=== PATIENT | male | born 1965 | race Caucasian/White ===

== ENCOUNTER 2023-06-25 18:10 | Inpatient (IN) | payer SELFPAY ==
[2023-06-25] MEDS ORDERED: Nitroglycerin 50 MG/250 ML BOT 250 ML ONE (18:36)
[2023-06-25 18:42] LABS: Troponin I 0.128 ng/mL (< 0.028)
[2023-06-25] MEDS ORDERED: Acetaminophen 325 MG TAB PO PRN (19:08)
[2023-06-25] MEDS ORDERED: Guaifenesin DM 100-10/5 ML UDCUP PO PRN (19:08)
[2023-06-25] MEDS ORDERED: Calcium Carbonate 500 MG ChewTAB PO PRN (19:08)
[2023-06-25] MEDS ORDERED: Dextrose 50% Abboject 50 ML SYRINGE SLOW IVP PRN (19:08)
[2023-06-25] MEDS ORDERED: Dextrose 5% in Water 1,000 ML IV PRN (19:08)
[2023-06-25] MEDS ORDERED: Glucagon 1 MG/ML KIT IM PRN (19:08)
[2023-06-25] MEDS ORDERED: Senokot S 8.6-50 MG TAB PO PRN (19:08)
[2023-06-25] MEDS ORDERED: Ondansetron PF 4 MG/2 ML Vial IVP PRN (19:08)
[2023-06-25] MEDS ORDERED: Ipratropium/Albuterol 3 ML NEB NEB PRN (19:12)
[2023-06-25] MEDS ORDERED: Nitroglycerin 50 MG/250 ML BOT 250 ML IVPB SCH (19:15)
[2023-06-25 21:13] VITALS: BMI 32.1
[2023-06-25] MEDS ORDERED: Lisinopril 10 MG TAB PO SCH (22:00)
[2023-06-25] MEDS ORDERED: Carvedilol 6.25 MG TAB PO SCH (22:00)
[2023-06-25] MEDS ORDERED: Atorvastatin Calcium 20 MG TAB PO SCH (22:00)
[2023-06-26 03:20] LABS: BUN (Urea Nitrogen) 10 mg/dL (8.4-25.7); Calc. Creatinine Clearance 151 mL/min (70-130); Calcium 7.9 mg/dL (7.8-10.44); Cardiac Risk 5.6 (Less than 4.5); Cholesterol 146 mg/dl (< 200 Desired); Estimated GFR 103; Glucose 160 mg/dL (70-105); HDL Cholesterol 26 mg/dL (>60 Neg Risk); LDL Cholesterol, Calculated 105 mg/dL; Triglycerides 74 mg/dL (Less than 150)
[2023-06-26 03:36] LABS: #Eosinphils 0.1 10x3/uL (0.0-0.5); #Monocytes 0.9 10x3/uL (0.0-1.1); #Neutrophils 4.7 10x3/uL (1.5-8.4); %Basophils 0.5 % (0.0-2.0); %Eosinophils 1.9 % (0.0-6.0); %Monocytes 14.2 % (0.0-10.0); %Neutrophils 72.2 % (40.0-75.0); Hematocrit 48.6 % (38.8-50.0); Hemoglobin 14.5 g/dL (13.5-17.5); Mean Corpuscular HGB CONC 29.8 g/dL (32.0-36.0); Mean Corpuscular Hemoglobin 27.5 pg (27.0-33.0); Mean Corpuscular Volume 92.2 fl (81.2-95.1); Mean Platelet Volume 9.6 fl (7.4-10.4); Platelet Count 291 10x3/uL (150-450); RBC Distribution Width 12.9 % (11.5-14.5); Red Blood Cell (RBC) Count 5.27 10x6/uL (4.32-5.72); White Blood Cell (WBC) Count 6.5 10x3/uL (3.5-10.5)
[2023-06-26 03:40] LABS: Anion Gap 14 mmol/L (10-20); Carbon Dioxide 36 mmol/L (22-29); Chloride 96 mmol/L (98-107); Potassium 4.3 mmol/L (3.5-5.1); Sodium 142 mmol/L (136-145)
[2023-06-26] MEDS: Furosemide 40 MG/4 ML VIAL SLOW IVP SCH ×2 (05:30→13:27)
[2023-06-26] MEDS: Empagliflozin 10 MG TAB PO SCH (08:44)
[2023-06-26] MEDS: Carvedilol 6.25 MG TAB PO SCH ×2 (08:44→17:17)
[2023-06-26] MEDS: Aspirin 81 mg Enteric Coated Tablet PO SCH (08:44)
[2023-06-26] MEDS: Lisinopril 20 MG TAB PO SCH (08:44)
[2023-06-26] MEDS ORDERED: Hydrochlorothiazide 25 MG TAB PO SCH (09:00)
[2023-06-26 11:08] LABS: Magnesium 1.8 mg/dL (1.6-2.6)
[2023-06-26 11:13] LABS: Troponin I 0.078 ng/mL (< 0.028)
[2023-06-26] MEDS: HumaLOG 300 UNITS/3 ML VIAL SC PRN (11:41)
[2023-06-26] MEDS ORDERED: hydrALAZINE 20 MG/ML VIAL SLOW IVP PRN (11:45)
[2023-06-26] MEDS ORDERED: Magnesium 2 GM/50 ML(in water) 2 GM in Premix Bag 1 BAG IVPB SCH (12:00)
[2023-06-26] MEDS: Atorvastatin Calcium 20 MG TAB PO SCH (22:56)
[2023-06-26] MEDS: Docusate 100 MG CAP PO SCH (22:56)
[2023-06-27 04:21] LABS: ALT (SGPT) 9 U/L (8-55); AST (SGOT) 18 U/L (5-34); Albumin 3.4 g/dL (3.5-5.0); Alkaline Phosphatase 66 U/L (40-110); BUN (Urea Nitrogen) 15 mg/dL (8.4-25.7); Bilirubin, Total 0.5 mg/dL (0.2-1.2); Calc. Creatinine Clearance 151 mL/min (70-130); Calcium 8.2 mg/dL (7.8-10.44); Estimated GFR 103; Globulin 2.9 g/dL (2.4-3.5); Glucose 123 mg/dL (70-105); Magnesium 2.2 mg/dL (1.6-2.6); Protein, Total 6.3 g/dL (6.0-8.3)
[2023-06-27 04:29] LABS: #Monocytes 0.7 10x3/uL (0.0-1.1); #Neutrophils 5.6 10x3/uL (1.5-8.4); %Basophils 0.3 % (0.0-2.0); %Eosinophils 0.3 % (0.0-6.0); %Lymphocytes 9.2 % (18.0-47.0); %Monocytes 10.4 % (0.0-10.0); %Neutrophils 79.5 % (40.0-75.0); Hematocrit 49.5 % (38.8-50.0); Hemoglobin 14.3 g/dL (13.5-17.5); Mean Corpuscular HGB CONC 28.9 g/dL (32.0-36.0); Mean Corpuscular Hemoglobin 27.3 pg (27.0-33.0); Mean Corpuscular Volume 94.6 fl (81.2-95.1); Mean Platelet Volume 9.4 fl (7.4-10.4); Platelet Count 322 10x3/uL (150-450); RBC Distribution Width 12.9 % (11.5-14.5); Red Blood Cell (RBC) Count 5.23 10x6/uL (4.32-5.72)
[2023-06-27 04:33] LABS: Anion Gap 15 mmol/L (10-20); Carbon Dioxide 39 mmol/L (22-29); Chloride 90 mmol/L (98-107); Sodium 140 mmol/L (136-145)
[2023-06-27] MEDS: Furosemide 40 MG/4 ML VIAL SLOW IVP SCH ×2 (06:36→15:00)
[2023-06-27] MEDS: Aspirin 81 mg Enteric Coated Tablet PO SCH (09:03)
[2023-06-27] MEDS: Docusate 100 MG CAP PO SCH ×2 (09:03→21:39)
[2023-06-27] MEDS: Lisinopril 20 MG TAB PO SCH (09:03)
[2023-06-27] MEDS: Carvedilol 6.25 MG TAB PO SCH (09:03)
[2023-06-27] MEDS: Empagliflozin 10 MG TAB PO SCH (09:51)
[2023-06-27] MEDS: Carvedilol 12.5 MG TAB PO SCH (16:03)
[2023-06-27] MEDS: Atorvastatin Calcium 20 MG TAB PO SCH (21:39)
[2023-06-27] MEDS: HumaLOG 300 UNITS/3 ML VIAL SC PRN (23:32)
[2023-06-28 04:43] LABS: BUN (Urea Nitrogen) 20 mg/dL (8.4-25.7); Calc. Creatinine Clearance 134 mL/min (70-130); Calcium 8.3 mg/dL (7.8-10.44); Estimated GFR 99; Glucose 122 mg/dL (70-105)
[2023-06-28 04:51] LABS: Anion Gap 18 mmol/L (10-20); Carbon Dioxide 41 mmol/L (22-29); Chloride 86 mmol/L (98-107); Potassium 3.8 mmol/L (3.5-5.1); Sodium 141 mmol/L (136-145)
[2023-06-28] MEDS: Furosemide 40 MG/4 ML VIAL SLOW IVP SCH (05:48)
[2023-06-28] MEDS: Empagliflozin 10 MG TAB PO SCH (08:45)
[2023-06-28] MEDS: Lisinopril 20 MG TAB PO SCH (08:45)
[2023-06-28] MEDS: Docusate 100 MG CAP PO SCH ×2 (08:45→21:50)
[2023-06-28] MEDS: Aspirin 81 mg Enteric Coated Tablet PO SCH (08:45)
[2023-06-28] MEDS: Carvedilol 12.5 MG TAB PO SCH ×2 (08:45→17:07)
[2023-06-28] MEDS ORDERED: Spironolactone 25 MG TAB PO SCH (10:15)
[2023-06-28] MEDS: Furosemide 40 MG TAB PO SCH (13:25)
[2023-06-28] MEDS: HumaLOG 300 UNITS/3 ML VIAL SC PRN (17:00)
[2023-06-28] MEDS: Atorvastatin Calcium 20 MG TAB PO SCH (21:50)
[2023-06-29] MEDS ORDERED: Spironolactone 25 MG TAB PO SCH (08:00)
[2023-06-29] MEDS: Lisinopril 20 MG TAB PO SCH (08:10)
[2023-06-29] MEDS: Docusate 100 MG CAP PO SCH (08:10)
[2023-06-29] MEDS: Carvedilol 12.5 MG TAB PO SCH (08:10)
[2023-06-29] MEDS: Furosemide 40 MG TAB PO SCH (08:10)
[2023-06-29] MEDS: Empagliflozin 10 MG TAB PO SCH (08:10)
[2023-06-29] MEDS: Aspirin 81 mg Enteric Coated Tablet PO SCH (08:10)
[2023-06-29 08:49] VITALS: BP 172/78; TEMP 97.7
== END 2023-06-29 11:06 | disposition left against medical advice (07) | DRG 280 ==
LOC: CSHERS 18:10 → CSHIMCU 20:06 → CSHTELE 06-26 16:11
PROVIDERS: ADMIT Student in an Organized Health Care Education/Training Program; ATTEND Internal Medicine
DX: I11.0 Hypertensive heart disease with heart failure (principal); J96.01 Acute respiratory failure with hypoxia; I21.A1 Myocardial infarction type 2; I16.1 Hypertensive emergency; I16.9 Hypertensive crisis, unspecified; Z68.1 Body mass index [BMI] 19.9 or less, adult; E78.5 Hyperlipidemia, unspecified; E11.9 Type 2 diabetes mellitus without complications; F17.210 Nicotine dependence, cigarettes, uncomplicated; I50.9 Heart failure, unspecified; E66.9 Obesity, unspecified; E78.00 Pure hypercholesterolemia, unspecified; E83.42 Hypomagnesemia; G47.33 Obstructive sleep apnea (adult) (pediatric); Z91.148 Patient's other noncompliance with medication regimen for other reason; Z98.890 Other specified postprocedural states; Z89.511 Acquired absence of right leg below knee
CPT/HCPCS: 36415; 36416; 80048; 80053; 80061; 83036; 83735; 83880; 84443; 84484; 85025; 93005; 93306; 94640; 94760; 94762; 96374; 97139; J1650; J1815; J1940; J3475; J7620

== ENCOUNTER 2023-07-04 13:08 | Inpatient (IN) | payer SELFPAY ==
[2023-07-04 14:09] LABS: Actual Bicarbonate (HCO3v) 39.9 mEq/L (22-28); Base Excess 10.8 mEq/L (-2 - +2); Calcium, Ionized (venous) 1.04 mmol/L (1.16-1.32); Chloride (VBG) 91 mmol/L (98-106); Hematocrit-VBG 46 % (42.0-52.0); Hemoglobin (Hb) 15.6 g/dL (13.1-17.2); Potassium (VBG) 3.91 mmol/L (3.70-5.30); Puncture Site Other Site; Sodium 135.5 mmol/L (133-146); pH (venous) 7.356 (7.32-7.43)
[2023-07-04 14:18] LABS: #Basophils 0.1 10x3/uL (0.0-0.2); #Eosinphils 0.1 10x3/uL (0.0-0.5); #Monocytes 1.2 10x3/uL (0.0-1.1); #Neutrophils 6.4 10x3/uL (1.5-8.4); %Basophils 0.6 % (0.0-2.0); %Lymphocytes 11.3 % (18.0-47.0); %Monocytes 13.7 % (0.0-10.0); %Neutrophils 73.1 % (40.0-75.0); Hematocrit 47.8 % (38.8-50.0); Hemoglobin 14.7 g/dL (13.5-17.5); Mean Corpuscular HGB CONC 30.8 g/dL (32.0-36.0); Mean Corpuscular Hemoglobin 28.1 pg (27.0-33.0); Mean Corpuscular Volume 91.4 fl (81.2-95.1); Mean Platelet Volume 10.3 fl (7.4-10.4); Platelet Count 318 10x3/uL (150-450); RBC Distribution Width 13.4 % (11.5-14.5); Red Blood Cell (RBC) Count 5.23 10x6/uL (4.32-5.72); White Blood Cell (WBC) Count 8.8 10x3/uL (3.5-10.5)
[2023-07-04] MEDS ORDERED: Nitroglycerin 2% Ointment 1 INCH/1 GM Packet ONE (14:22)
[2023-07-04] MEDS ORDERED: Furosemide 40 MG/4 ML VIAL ONE (14:22)
[2023-07-04] MEDS ORDERED: Nitroglycerin 0.4 MG TAB (25 Tab Bottle) ONE (14:23)
[2023-07-04 14:26] LABS: ALT (SGPT) 8 U/L (8-55); AST (SGOT) 16 U/L (5-34); Albumin 3.3 g/dL (3.5-5.0); Alkaline Phosphatase 59 U/L (40-110); Anion Gap 15 mmol/L (10-20); BUN (Urea Nitrogen) 18 mg/dL (8.4-25.7); Bilirubin, Total 0.5 mg/dL (0.2-1.2); Calc. Creatinine Clearance 0 mL/min (70-130); Calcium 8.1 mg/dL (7.8-10.44); Carbon Dioxide 37 mmol/L (22-29); Chloride 90 mmol/L (98-107); Estimated GFR 102; Glucose 315 mg/dL (70-105); Protein, Total 6.3 g/dL (6.0-8.3); Sodium 138 mmol/L (136-145)
[2023-07-04 14:50] LABS: SARS-CoV-2 NAA Rapid Test Not Detected (NotDetected)
[2023-07-04 15:51] LABS: Troponin I 0.507 ng/mL (< 0.028)
[2023-07-04] MEDS ORDERED: Dextrose 50% Abboject 50 ML SYRINGE SLOW IVP PRN (15:59)
[2023-07-04] MEDS ORDERED: Glucagon 1 MG/ML KIT IM PRN (15:59)
[2023-07-04] MEDS ORDERED: Dextrose 5% in Water 1,000 ML IV PRN (15:59)
[2023-07-04] MEDS ORDERED: Ipratropium/Albuterol 3 ML NEB NEB PRN (16:01)
[2023-07-04] MEDS ORDERED: Loperamide HCl 2 MG CAP PO PRN ×2 (16:04)
[2023-07-04] MEDS ORDERED: Ondansetron PF 4 MG/2 ML Vial IVP PRN (16:04)
[2023-07-04] MEDS ORDERED: Bisacodyl 5 MG TAB PO PRN (16:04)
[2023-07-04] MEDS ORDERED: HYDROcodone/Acetaminophen 5/325 mg Tablet PO PRN (16:04)
[2023-07-04] MEDS ORDERED: Acetaminophen 650 MG Suppository PR PRN (16:04)
[2023-07-04] MEDS ORDERED: Acetaminophen 325 MG TAB PO PRN (16:04)
[2023-07-04] MEDS ORDERED: Ondansetron ODT 4 MG TAB PO PRN (16:04)
[2023-07-04] MEDS ORDERED: Senokot S 8.6-50 MG TAB PO PRN (16:04)
[2023-07-04 16:42] LABS: Troponin I 0.476 ng/mL (< 0.028)
[2023-07-04] MEDS ORDERED: Aspirin 325 MG TAB PO SCH (18:00)
[2023-07-04] MEDS ORDERED: Carvedilol 12.5 MG TAB PO SCH (18:00)
[2023-07-04] MEDS ORDERED: Aspirin 325 mg Enteric Coated Tablet ONE (18:12)
[2023-07-04] MEDS ORDERED: Insulin Regular 300 UNITS/3 ML VIAL ONE (18:12)
[2023-07-04] MEDS ORDERED: cefTRIAXone (ROCEPHIN) 2 GM VIAL ONE (18:12)
[2023-07-04] MEDS: cefTRIAXone\\ROCEPHIN 2 GM in Sodium Chloride 0.9% 100 ML IVPB SCH (18:22)
[2023-07-04] MEDS: HumaLOG 300 UNITS/3 ML VIAL SC PRN ×2 (18:23→21:57)
[2023-07-04] MEDS: Nicotine 14 MG PATCH TD SCH (18:23)
[2023-07-04 20:01] LABS: Troponin I 0.548 ng/mL (< 0.028)
[2023-07-04] MEDS: Famotidine 20 MG TAB PO SCH (20:20)
[2023-07-04] MEDS ORDERED: Famotidine/PF 20 mg/2ml Vial SLOW IVP PRN (21:00)
[2023-07-04] MEDS ORDERED: Atorvastatin Calcium 20 MG TAB PO SCH (21:00)
[2023-07-04] MEDS ORDERED: Furosemide 40 MG/4 ML VIAL SLOW IVP SCH (21:00)
[2023-07-04] MEDS: Nitroglycerin 2% Ointment 1 INCH/1 GM Packet TOP SCH (21:58)
[2023-07-05] MEDS: HumaLOG 300 UNITS/3 ML VIAL SC PRN ×5 (02:07→23:46)
[2023-07-05 05:28] LABS: Actual Bicarbonate (HCO3v) 49.3 mEq/L (22-28); Base Excess 15.7 mEq/L (-2 - +2); Calcium, Ionized (venous) 1.04 mmol/L (1.16-1.32); Chloride (VBG) 92 mmol/L (98-106); Hematocrit-VBG 43 % (42.0-52.0); Hemoglobin (Hb) 14.7 g/dL (13.1-17.2); Potassium (VBG) 4.41 mmol/L (3.70-5.30); Puncture Site Other Site; Sodium 140.1 mmol/L (133-146); pH (venous) 7.237 (7.32-7.43)
[2023-07-05 05:44] LABS: #Basophils 0.1 10x3/uL (0.0-0.2); #Eosinphils 0.2 10x3/uL (0.0-0.5); #Neutrophils 4.8 10x3/uL (1.5-8.4); %Basophils 0.7 % (0.0-2.0); %Eosinophils 2.4 % (0.0-6.0); %Lymphocytes 14.8 % (18.0-47.0); %Monocytes 14.3 % (0.0-10.0); %Neutrophils 67.5 % (40.0-75.0); Hematocrit 47.2 % (38.8-50.0); Hemoglobin 13.6 g/dL (13.5-17.5); Mean Corpuscular HGB CONC 28.8 g/dL (32.0-36.0); Mean Corpuscular Hemoglobin 27.4 pg (27.0-33.0); Mean Corpuscular Volume 95.2 fl (81.2-95.1); Mean Platelet Volume 10.3 fl (7.4-10.4); Platelet Count 294 10x3/uL (150-450); RBC Distribution Width 13.7 % (11.5-14.5); Red Blood Cell (RBC) Count 4.96 10x6/uL (4.32-5.72); White Blood Cell (WBC) Count 7.2 10x3/uL (3.5-10.5)
[2023-07-05] MEDS ORDERED: Ipratropium/Albuterol 3 ML NEB NEB SCH (05:45)
[2023-07-05] MEDS ORDERED: methylPREDNISolone Sod Succ/PF 125 MG/2 ML VIAL IVP SCH (05:45)
[2023-07-05 06:06] LABS: BUN (Urea Nitrogen) 23 mg/dL (8.4-25.7); Calc. Creatinine Clearance 138 mL/min (70-130); Calcium 7.8 mg/dL (7.8-10.44); Estimated GFR 102; Glucose 233 mg/dL (70-105)
[2023-07-05 06:15] LABS: Anion Gap 21 mmol/L (10-20); Carbon Dioxide 33 mmol/L (22-29); Chloride 91 mmol/L (98-107); Potassium 4.4 mmol/L (3.5-5.1); Sodium 141 mmol/L (136-145)
[2023-07-05] MEDS: Furosemide 40 MG/4 ML VIAL SLOW IVP SCH ×2 (06:18→13:08)
[2023-07-05] MEDS: Nitroglycerin 2% Ointment 1 INCH/1 GM Packet TOP SCH ×3 (06:18→22:34)
[2023-07-05 07:42] LABS: Actual Bicarbonate (HCO3v) 46.4 mEq/L (22-28); Base Excess 11.2 mEq/L (-2 - +2); Calcium, Ionized (venous) 1.08 mmol/L (1.16-1.32); Chloride (VBG) 90 mmol/L (98-106); Hematocrit-VBG 46 % (42.0-52.0); Hemoglobin (Hb) 15.5 g/dL (13.1-17.2); Potassium (VBG) 3.96 mmol/L (3.70-5.30); Puncture Site Other Site; RapidComm Collect By lab tech; Sodium 141.1 mmol/L (133-146); pH (venous) 7.156 (7.32-7.43)
[2023-07-05] MEDS ORDERED: Carvedilol 12.5 MG TAB PO SCH (08:00)
[2023-07-05] MEDS: Ipratropium/Albuterol 3 ML NEB NEB SCH ×4 (09:30→22:24)
[2023-07-05] MEDS: Aspirin 81 mg Enteric Coated Tablet PO SCH (09:43)
[2023-07-05] MEDS: Famotidine 20 MG TAB PO SCH (09:43)
[2023-07-05 09:56] LABS: Actual Bicarbonate (HCO3a) 51.3 mEq/L (22-28); Base Excess (BEa) 17.5 mEq/L (-2.0 to +3.0); Carboxyhemoglobin (COHb) 1.5 gm% (0.0-3.0); Hematocrit-ABG 43 % (42.0-52.0); Hemoglobin (Hb) 14.6 g/dL (14.0-18.0); O2 Tension (PaO2), arterial 80.3 mmHg (80.0-100.0); Potassium - ABG Lab 3.75 mmol/L (3.70-5.30); Puncture Site RRA; pH, Arterial 7.245 (7.35-7.45)
[2023-07-05 10:02] LABS: Amphetamine Not Detected (NotDetected); Barbiturates Screen Not Detected (NotDetected); Benzodiazepine Screen Not Detected (NotDetected); Cocaine Metabolite Screen Not Detected (NotDetected); Methadone Not Detected (NotDetected); Methamphetamine Not Detected (NotDetected); Opiate Screen Not Detected (NotDetected); Oxycodone Screen Not Detected (NotDetected); Phencyclidine (PCP) Not Detected (NotDetected); THC/Cannabinoid Screen Not Detected (NotDetected); Tricyclic Screen Not Detected (NotDetected)
[2023-07-05] MEDS ORDERED: Labetalol HCl 100 MG/20 ML VIAL SLOW IVP PRN (10:06)
[2023-07-05] MEDS: Aspirin 325 MG TAB PO SCH ×2 (10:11→10:19)
[2023-07-05] MEDS ORDERED: Aspirin 300 MG Suppository PR SCH (10:30)
[2023-07-05 10:35] LABS: Acetaminophen Less than 10 mcg/mL (10.0-30.0); Alcohol Less than 10.0 mg/dL (Less than 10); Salicylate Less than 8.0 mg/dL (15.0-30.0)
[2023-07-05 11:31] LABS: INR-International Normal Ratio 1.1; PTT 28.5 sec (22.0-33.0); Prothrombin Time 11.9 sec (9.5-12.1)
[2023-07-05 11:54] LABS: Free T4 (Free Thyroxine) 0.95 ng/dL (0.70-1.48); Thyroid Stimulating Hormone 0.6168 uIU/mL (0.35-4.94)
[2023-07-05] MEDS: methylPREDNISolone Sod Succ 40 MG VIAL IVP SCH ×3 (13:08→23:34)
[2023-07-05] MEDS: Mometasone/Formoterol 200/5 60 PUFF INH SCH ×2 (13:48→19:30)
[2023-07-05] MEDS ORDERED: Iopamidol 370 76% 100 ML VIAL ONE ×2 (13:51→13:52)
[2023-07-05] MEDS: Nicotine 14 MG PATCH TD SCH (17:22)
[2023-07-05] MEDS: cefTRIAXone\\ROCEPHIN 2 GM in Sodium Chloride 0.9% 100 ML IVPB SCH (18:08)
[2023-07-05] MEDS: Atorvastatin Calcium 40 MG TAB PO SCH (20:20)
[2023-07-06 03:15] LABS: #Monocytes 0.3 10x3/uL (0.0-1.1); #Neutrophils 6.3 10x3/uL (1.5-8.4); %Lymphocytes 4.2 % (18.0-47.0); %Monocytes 4.5 % (0.0-10.0); %Neutrophils 91.2 % (40.0-75.0); Hematocrit 44.1 % (38.8-50.0); Hemoglobin 13.3 g/dL (13.5-17.5); Mean Corpuscular HGB CONC 30.2 g/dL (32.0-36.0); Mean Corpuscular Hemoglobin 27.7 pg (27.0-33.0); Mean Corpuscular Volume 91.9 fl (81.2-95.1); Mean Platelet Volume 10.1 fl (7.4-10.4); Platelet Count 280 10x3/uL (150-450); RBC Distribution Width 13.1 % (11.5-14.5)
[2023-07-06] MEDS: Ipratropium/Albuterol 3 ML NEB NEB SCH ×6 (03:15→22:40)
[2023-07-06 03:58] LABS: BUN (Urea Nitrogen) 30 mg/dL (8.4-25.7); Calc. Creatinine Clearance 135 mL/min (70-130); Calcium 7.9 mg/dL (7.8-10.44); Cardiac Risk 5.9 (Less than 4.5); Cholesterol 135 mg/dl (< 200 Desired); Estimated GFR 101; Glucose 376 mg/dL (70-105); HDL Cholesterol 23 mg/dL (>60 Neg Risk); LDL Cholesterol, Calculated 93 mg/dL; Triglycerides 97 mg/dL (Less than 150)
[2023-07-06] MEDS: HumaLOG 300 UNITS/3 ML VIAL SC PRN ×5 (04:03→19:56)
[2023-07-06 04:06] LABS: Anion Gap 23 mmol/L (10-20); Carbon Dioxide 33 mmol/L (22-29); Chloride 90 mmol/L (98-107); Sodium 142 mmol/L (136-145)
[2023-07-06] MEDS: methylPREDNISolone Sod Succ 40 MG VIAL IVP SCH ×2 (05:57→12:09)
[2023-07-06] MEDS: Nitroglycerin 2% Ointment 1 INCH/1 GM Packet TOP SCH ×3 (05:57→21:00)
[2023-07-06] MEDS: Furosemide 40 MG/4 ML VIAL SLOW IVP SCH ×2 (05:57→13:38)
[2023-07-06] MEDS: Mometasone/Formoterol 200/5 60 PUFF INH SCH ×2 (07:00→18:40)
[2023-07-06] MEDS: Aspirin 81 mg Enteric Coated Tablet PO SCH (07:43)
[2023-07-06] MEDS: Aspirin 300 MG Suppository PR SCH (09:25)
[2023-07-06] MEDS: hydrALAZINE 20 MG/ML VIAL SLOW IVP PRN (10:50)
[2023-07-06] MEDS ORDERED: Lisinopril 20 MG TAB PO SCH (13:00)
[2023-07-06] MEDS: Carvedilol 6.25 MG TAB PO SCH (16:13)
[2023-07-06] MEDS: Nicotine 14 MG PATCH TD SCH (18:08)
[2023-07-06] MEDS: cefTRIAXone\\ROCEPHIN 2 GM in Sodium Chloride 0.9% 100 ML IVPB SCH (18:08)
[2023-07-06 19:52] LABS: Hemoglobin A1c 8.3 % (4.0-6.0)
[2023-07-06] MEDS: Atorvastatin Calcium 40 MG TAB PO SCH (20:10)
[2023-07-07] MEDS: Ipratropium/Albuterol 3 ML NEB NEB SCH ×5 (02:30→20:40)
[2023-07-07 04:07] LABS: BUN (Urea Nitrogen) 25 mg/dL (8.4-25.7); Calc. Creatinine Clearance 152 mL/min (70-130); Calcium 8.3 mg/dL (7.8-10.44); Estimated GFR 105; Glucose 186 mg/dL (70-105)
[2023-07-07 04:14] VITALS: BMI 32.3
[2023-07-07 04:14] LABS: Anion Gap 18 mmol/L (10-20); Carbon Dioxide 38 mmol/L (22-29); Chloride 89 mmol/L (98-107); Potassium 3.5 mmol/L (3.5-5.1); Sodium 141 mmol/L (136-145)
[2023-07-07 04:27] LABS: #Monocytes 0.9 10x3/uL (0.0-1.1); #Neutrophils 7.6 10x3/uL (1.5-8.4); %Eosinophils 0.1 % (0.0-6.0); %Lymphocytes 8.6 % (18.0-47.0); %Neutrophils 81.1 % (40.0-75.0); Hematocrit 42.3 % (38.8-50.0); Hemoglobin 12.9 g/dL (13.5-17.5); Mean Corpuscular HGB CONC 30.5 g/dL (32.0-36.0); Mean Corpuscular Hemoglobin 27.6 pg (27.0-33.0); Mean Corpuscular Volume 90.4 fl (81.2-95.1); Mean Platelet Volume 10.1 fl (7.4-10.4); Platelet Count 263 10x3/uL (150-450); RBC Distribution Width 13.4 % (11.5-14.5); Red Blood Cell (RBC) Count 4.68 10x6/uL (4.32-5.72); White Blood Cell (WBC) Count 9.3 10x3/uL (3.5-10.5)
[2023-07-07] MEDS: Furosemide 40 MG/4 ML VIAL SLOW IVP SCH ×2 (06:16→14:17)
[2023-07-07] MEDS: Nitroglycerin 2% Ointment 1 INCH/1 GM Packet TOP SCH (06:16)
[2023-07-07] MEDS: Carvedilol 6.25 MG TAB PO SCH (08:18)
[2023-07-07] MEDS: HumaLOG 300 UNITS/3 ML VIAL SC PRN ×5 (08:18→23:09)
[2023-07-07] MEDS: Lisinopril 20 MG TAB PO SCH (08:18)
[2023-07-07] MEDS: Aspirin 81 mg Enteric Coated Tablet PO SCH (08:18)
[2023-07-07] MEDS: predniSONE 20 MG TAB PO SCH (08:18)
[2023-07-07] MEDS: Aspirin 300 MG Suppository PR SCH (08:19)
[2023-07-07] MEDS: Mometasone/Formoterol 200/5 60 PUFF INH SCH ×2 (08:44→21:09)
[2023-07-07] MEDS ORDERED: Carvedilol 12.5 MG TAB PO SCH (09:30)
[2023-07-07] MEDS: Carvedilol 25 MG TAB PO SCH (16:19)
[2023-07-07] MEDS: Nicotine 14 MG PATCH TD SCH (17:19)
[2023-07-07] MEDS: cefTRIAXone\\ROCEPHIN 2 GM in Sodium Chloride 0.9% 100 ML IVPB SCH (17:19)
[2023-07-07] MEDS: Atorvastatin Calcium 40 MG TAB PO SCH (20:51)
[2023-07-07 22:08] LABS: Actual Bicarbonate (HCO3v) 39.5 mEq/L (22-28); Base Excess 12.6 mEq/L (-2 - +2); Calcium, Ionized (venous) 1.01 mmol/L (1.16-1.32); Chloride (VBG) 87 mmol/L (98-106); Hematocrit-VBG 43 % (42.0-52.0); Hemoglobin (Hb) 14.6 g/dL (13.1-17.2); Potassium (VBG) 3.55 mmol/L (3.70-5.30); Puncture Site Other Site; Sodium 132.4 mmol/L (133-146)
[2023-07-08] MEDS: Ipratropium/Albuterol 3 ML NEB NEB SCH ×4 (00:35→19:14)
[2023-07-08] MEDS: hydrALAZINE 20 MG/ML VIAL SLOW IVP PRN ×2 (04:11→12:06)
[2023-07-08 05:16] LABS: #Eosinphils 0.1 10x3/uL (0.0-0.5); #Monocytes 1.4 10x3/uL (0.0-1.1); #Neutrophils 6.3 10x3/uL (1.5-8.4); %Basophils 0.1 % (0.0-2.0); %Eosinophils 0.6 % (0.0-6.0); %Lymphocytes 13.7 % (18.0-47.0); %Monocytes 15.2 % (0.0-10.0); Hematocrit 47.5 % (38.8-50.0); Hemoglobin 14.6 g/dL (13.5-17.5); Mean Corpuscular HGB CONC 30.7 g/dL (32.0-36.0); Mean Corpuscular Hemoglobin 27.1 pg (27.0-33.0); Mean Corpuscular Volume 88.1 fl (81.2-95.1); Platelet Count 296 10x3/uL (150-450); RBC Distribution Width 13.2 % (11.5-14.5); Red Blood Cell (RBC) Count 5.39 10x6/uL (4.32-5.72)
[2023-07-08 05:20] LABS: BUN (Urea Nitrogen) 23 mg/dL (8.4-25.7); Calc. Creatinine Clearance 155 mL/min (70-130); Calcium 8.3 mg/dL (7.8-10.44); Estimated GFR 104; Glucose 272 mg/dL (70-105)
[2023-07-08 05:27] LABS: Anion Gap 18 mmol/L (10-20); Carbon Dioxide 34 mmol/L (22-29); Chloride 88 mmol/L (98-107); Potassium 3.4 mmol/L (3.5-5.1); Sodium 137 mmol/L (136-145)
[2023-07-08] MEDS: Furosemide 40 MG/4 ML VIAL SLOW IVP SCH ×2 (05:44→15:23)
[2023-07-08] MEDS: HumaLOG 300 UNITS/3 ML VIAL SC PRN ×2 (06:30→12:07)
[2023-07-08] MEDS ORDERED: hydrALAZINE 20 MG/ML VIAL SLOW IVP PRN (09:19)
[2023-07-08] MEDS: predniSONE 20 MG TAB PO SCH (09:20)
[2023-07-08] MEDS: Lisinopril 20 MG TAB PO SCH (09:20)
[2023-07-08] MEDS: Mometasone/Formoterol 200/5 60 PUFF INH SCH ×2 (09:23→19:13)
[2023-07-08] MEDS: Aspirin 300 MG Suppository PR SCH (10:46)
[2023-07-08] MEDS: Aspirin 81 mg Enteric Coated Tablet PO SCH (10:46)
[2023-07-08] MEDS: Lantus 1000 UNITS/10 ML VIAL SC SCH (10:47)
[2023-07-08] MEDS: Empagliflozin 25 MG TAB PO SCH (11:37)
[2023-07-08] MEDS: Carvedilol 25 MG TAB PO SCH ×2 (11:37→17:54)
[2023-07-08] MEDS ORDERED: cloNIDine 0.1 MG TAB PO PRN (11:59)
[2023-07-08] MEDS: hydrALAZINE 25 MG TAB PO SCH ×2 (15:22→21:06)
[2023-07-08] MEDS: cefTRIAXone\\ROCEPHIN 2 GM in Sodium Chloride 0.9% 100 ML IVPB SCH (17:54)
[2023-07-08] MEDS: Nicotine 14 MG PATCH TD SCH (19:11)
[2023-07-08] MEDS: Atorvastatin Calcium 40 MG TAB PO SCH (21:07)
[2023-07-09] MEDS: Ipratropium/Albuterol 3 ML NEB NEB SCH ×4 (01:48→19:40)
[2023-07-09 03:59] LABS: BUN (Urea Nitrogen) 21 mg/dL (8.4-25.7); Calc. Creatinine Clearance 153 mL/min (70-130); Calcium 8.1 mg/dL (7.8-10.44); Estimated GFR 105; Glucose 155 mg/dL (70-105)
[2023-07-09 04:01] LABS: #Eosinphils 0.2 10x3/uL (0.0-0.5); #Monocytes 0.9 10x3/uL (0.0-1.1); #Neutrophils 3.7 10x3/uL (1.5-8.4); %Basophils 0.3 % (0.0-2.0); %Eosinophils 2.5 % (0.0-6.0); %Lymphocytes 20.2 % (18.0-47.0); %Monocytes 14.5 % (0.0-10.0); Hematocrit 49.1 % (38.8-50.0); Hemoglobin 14.9 g/dL (13.5-17.5); Mean Corpuscular HGB CONC 30.3 g/dL (32.0-36.0); Mean Corpuscular Hemoglobin 27.2 pg (27.0-33.0); Mean Corpuscular Volume 89.8 fl (81.2-95.1); Mean Platelet Volume 9.7 fl (7.4-10.4); Platelet Count 249 10x3/uL (150-450); RBC Distribution Width 13.3 % (11.5-14.5); Red Blood Cell (RBC) Count 5.47 10x6/uL (4.32-5.72); White Blood Cell (WBC) Count 5.9 10x3/uL (3.5-10.5)
[2023-07-09 04:07] LABS: Anion Gap 20 mmol/L (10-20); Carbon Dioxide 34 mmol/L (22-29); Chloride 90 mmol/L (98-107); Potassium 3.7 mmol/L (3.5-5.1); Sodium 140 mmol/L (136-145)
[2023-07-09] MEDS: Furosemide 40 MG/4 ML VIAL SLOW IVP SCH ×2 (06:39→14:29)
[2023-07-09] MEDS: Mometasone/Formoterol 200/5 60 PUFF INH SCH ×2 (08:05→19:30)
[2023-07-09] MEDS: hydrALAZINE 25 MG TAB PO SCH ×3 (08:53→22:20)
[2023-07-09] MEDS: Aspirin 81 mg Enteric Coated Tablet PO SCH (08:53)
[2023-07-09] MEDS: Carvedilol 25 MG TAB PO SCH ×2 (08:53→16:30)
[2023-07-09] MEDS: Aspirin 300 MG Suppository PR SCH (08:54)
[2023-07-09] MEDS: Lantus 1000 UNITS/10 ML VIAL SC SCH (08:54)
[2023-07-09] MEDS: predniSONE 20 MG TAB PO SCH (08:54)
[2023-07-09] MEDS: Valsartan 80 MG TAB PO SCH (08:54)
[2023-07-09] MEDS ORDERED: Potassium Chloride 20 MEQ TAB PO SCH (10:00)
[2023-07-09] MEDS: Empagliflozin 25 MG TAB PO SCH (11:48)
[2023-07-09] MEDS: HumaLOG 300 UNITS/3 ML VIAL SC PRN ×2 (11:49→16:30)
[2023-07-09] MEDS: cefTRIAXone\\ROCEPHIN 2 GM in Sodium Chloride 0.9% 100 ML IVPB SCH (19:00)
[2023-07-09] MEDS: Nicotine 14 MG PATCH TD SCH (19:00)
[2023-07-09] MEDS: Atorvastatin Calcium 40 MG TAB PO SCH (22:19)
[2023-07-10] MEDS: Ipratropium/Albuterol 3 ML NEB NEB SCH ×4 (01:25→19:11)
[2023-07-10 04:50] LABS: BUN (Urea Nitrogen) 22 mg/dL (8.4-25.7); Calc. Creatinine Clearance 138 mL/min (70-130); Calcium 8.4 mg/dL (7.8-10.44); Estimated GFR 101; Glucose 184 mg/dL (70-105)
[2023-07-10 04:51] LABS: #Eosinphils 0.1 10x3/uL (0.0-0.5); #Monocytes 1.2 10x3/uL (0.0-1.1); #Neutrophils 6.5 10x3/uL (1.5-8.4); %Basophils 0.1 % (0.0-2.0); %Lymphocytes 14.4 % (18.0-47.0); %Monocytes 13.1 % (0.0-10.0); %Neutrophils 71.2 % (40.0-75.0); Hematocrit 47.1 % (38.8-50.0); Hemoglobin 14.5 g/dL (13.5-17.5); Mean Corpuscular HGB CONC 30.8 g/dL (32.0-36.0); Mean Corpuscular Hemoglobin 27.6 pg (27.0-33.0); Mean Corpuscular Volume 89.5 fl (81.2-95.1); Mean Platelet Volume 9.8 fl (7.4-10.4); Platelet Count 267 10x3/uL (150-450); RBC Distribution Width 13.2 % (11.5-14.5); Red Blood Cell (RBC) Count 5.26 10x6/uL (4.32-5.72); White Blood Cell (WBC) Count 9.1 10x3/uL (3.5-10.5)
[2023-07-10 04:57] LABS: Anion Gap 17 mmol/L (10-20); Carbon Dioxide 36 mmol/L (22-29); Chloride 92 mmol/L (98-107); Potassium 3.6 mmol/L (3.5-5.1); Sodium 141 mmol/L (136-145)
[2023-07-10] MEDS: Furosemide 40 MG/4 ML VIAL SLOW IVP SCH (06:31)
[2023-07-10] MEDS: Mometasone/Formoterol 200/5 60 PUFF INH SCH ×2 (07:45→19:09)
[2023-07-10] MEDS: Carvedilol 25 MG TAB PO SCH ×2 (09:51→19:50)
[2023-07-10] MEDS: predniSONE 20 MG TAB PO SCH (09:51)
[2023-07-10] MEDS: hydrALAZINE 25 MG TAB PO SCH ×3 (09:51→22:02)
[2023-07-10] MEDS: Lantus 1000 UNITS/10 ML VIAL SC SCH (09:52)
[2023-07-10] MEDS: Empagliflozin 25 MG TAB PO SCH (09:53)
[2023-07-10] MEDS: Valsartan 80 MG TAB PO SCH (09:53)
[2023-07-10] MEDS: Aspirin 300 MG Suppository PR SCH (09:54)
[2023-07-10] MEDS: Aspirin 81 mg Enteric Coated Tablet PO SCH (10:02)
[2023-07-10] MEDS ORDERED: Spironolactone 25 MG TAB PO SCH (11:00)
[2023-07-10] MEDS ORDERED: Potassium Chloride 20 MEQ TAB PO SCH (11:00)
[2023-07-10] MEDS: HumaLOG 300 UNITS/3 ML VIAL SC PRN ×2 (12:23→22:02)
[2023-07-10] MEDS: Furosemide 40 MG TAB PO SCH (15:18)
[2023-07-10] MEDS: cefTRIAXone\\ROCEPHIN 2 GM in Sodium Chloride 0.9% 100 ML IVPB SCH (19:50)
[2023-07-10] MEDS: Nicotine 14 MG PATCH TD SCH (19:53)
[2023-07-10] MEDS: Atorvastatin Calcium 40 MG TAB PO SCH (22:02)
[2023-07-11] MEDS: Ipratropium/Albuterol 3 ML NEB NEB SCH ×3 (00:32→14:44)
[2023-07-11 03:55] LABS: #Eosinphils 0.1 10x3/uL (0.0-0.5); #Monocytes 1.1 10x3/uL (0.0-1.1); #Neutrophils 6.9 10x3/uL (1.5-8.4); %Basophils 0.2 % (0.0-2.0); %Eosinophils 0.8 % (0.0-6.0); %Lymphocytes 14.6 % (18.0-47.0); %Monocytes 11.1 % (0.0-10.0); Hematocrit 49.8 % (38.8-50.0); Hemoglobin 15.3 g/dL (13.5-17.5); Mean Corpuscular HGB CONC 30.7 g/dL (32.0-36.0); Mean Corpuscular Hemoglobin 27.3 pg (27.0-33.0); Mean Corpuscular Volume 88.8 fl (81.2-95.1); Mean Platelet Volume 9.8 fl (7.4-10.4); Platelet Count 322 10x3/uL (150-450); RBC Distribution Width 13.5 % (11.5-14.5); Red Blood Cell (RBC) Count 5.61 10x6/uL (4.32-5.72); White Blood Cell (WBC) Count 9.5 10x3/uL (3.5-10.5)
[2023-07-11 04:18] LABS: BUN (Urea Nitrogen) 26 mg/dL (8.4-25.7); Calc. Creatinine Clearance 0 mL/min (70-130); Calcium 8.9 mg/dL (7.8-10.44); Estimated GFR 100; Glucose 118 mg/dL (70-105)
[2023-07-11 04:25] LABS: Anion Gap 18 mmol/L (10-20); Carbon Dioxide 34 mmol/L (22-29); Chloride 93 mmol/L (98-107); Potassium 4.6 mmol/L (3.5-5.1); Sodium 140 mmol/L (136-145)
[2023-07-11] MEDS: Mometasone/Formoterol 200/5 60 PUFF INH SCH (07:35)
[2023-07-11] MEDS ORDERED: Spironolactone 25 MG TAB PO SCH (08:00)
[2023-07-11] MEDS: Carvedilol 25 MG TAB PO SCH (08:46)
[2023-07-11] MEDS: Empagliflozin 25 MG TAB PO SCH (08:46)
[2023-07-11] MEDS: predniSONE 20 MG TAB PO SCH (08:46)
[2023-07-11] MEDS: Furosemide 40 MG TAB PO SCH (08:46)
[2023-07-11] MEDS: Valsartan 80 MG TAB PO SCH (08:46)
[2023-07-11] MEDS: hydrALAZINE 25 MG TAB PO SCH (08:47)
[2023-07-11] MEDS: Aspirin 300 MG Suppository PR SCH (08:47)
[2023-07-11] MEDS: Aspirin 81 mg Enteric Coated Tablet PO SCH (08:47)
[2023-07-11] MEDS: Lantus 1000 UNITS/10 ML VIAL SC SCH (08:48)
[2023-07-11 09:21] VITALS: TEMP 98
[2023-07-11 12:30] VITALS: BP 133/71
== END 2023-07-11 15:38 | disposition home or self-care (01) | DRG 280 ==
LOC: CSHERS 13:08 → CSHERHOLD 15:19 → CSHTELE 20:02 → CSHIMCU 07-05 07:32 → CSHTELE 07-08 00:20
PROVIDERS: ADMIT Student in an Organized Health Care Education/Training Program; ATTEND Internal Medicine
PROC: 4A133R1 Monitoring of Arterial Saturation, Peripheral, Percutaneous Approach (ICD-10-PCS; principal; 2023-07-05)
PROC: 5A09457 Assistance with Respiratory Ventilation, 24-96 Consecutive Hours, Continuous Positive Airway Pressure (ICD-10-PCS; 2023-07-05)
DX: I11.0 Hypertensive heart disease with heart failure (principal); I21.A1 Myocardial infarction type 2; G93.41 Metabolic encephalopathy; I50.43 Acute on chronic combined systolic (congestive) and diastolic (congestive) heart failure; J96.22 Acute and chronic respiratory failure with hypercapnia; J96.21 Acute and chronic respiratory failure with hypoxia; I63.9 Cerebral infarction, unspecified; I16.9 Hypertensive crisis, unspecified; L03.116 Cellulitis of left lower limb; E11.9 Type 2 diabetes mellitus without complications; G47.33 Obstructive sleep apnea (adult) (pediatric); E78.00 Pure hypercholesterolemia, unspecified; Z89.511 Acquired absence of right leg below knee; F17.210 Nicotine dependence, cigarettes, uncomplicated; Z82.49 Family history of ischemic heart disease and other diseases of the circulatory system; Z20.822 Contact with and (suspected) exposure to COVID-19; Z71.6 Tobacco abuse counseling; Z91.148 Patient's other noncompliance with medication regimen for other reason; Z79.4 Long term (current) use of insulin; Z79.899 Other long term (current) drug therapy; E04.1 Nontoxic single thyroid nodule; J44.9 Chronic obstructive pulmonary disease, unspecified; Z79.82 Long term (current) use of aspirin
CPT/HCPCS: 36415; 36416; 36600; 70450; 70496; 70498; 70551; 71045; 71275; 80048; 80053; 80061; 80306; 80307; 82805; 83036; 83605; 83735; 83880; 84439; 84443; 84481; 84484; 85025; 85610; 85730; 93005; 93010; 94640; 94660; 94664; 94760; 94762; 96374; 97139; J0360; J0696; J1650; J1815; J1940; J2920; J2930; J3490; J7512; J7620; Q9967

== ENCOUNTER 2023-11-20 07:44 | Inpatient (IN) | payer SELFPAY ==
[2023-11-20 08:12] LABS: #Monocytes 0.9 10x3/uL (0.0-1.1); #Neutrophils 7.8 10x3/uL (1.5-8.4); %Basophils 0.2 % (0.0-2.0); %Lymphocytes 8.4 % (18.0-47.0); %Monocytes 9.1 % (0.0-10.0); %Neutrophils 81.8 % (40.0-75.0); Hematocrit 50.7 % (38.8-50.0); Mean Corpuscular HGB CONC 29.6 g/dL (32.0-36.0); Mean Corpuscular Hemoglobin 25.7 pg (27.0-33.0); Mean Platelet Volume 9.7 fl (7.4-10.4); Platelet Count 415 10x3/uL (150-450); RBC Distribution Width 15.5 % (11.5-14.5); Red Blood Cell (RBC) Count 5.83 10x6/uL (4.32-5.72); White Blood Cell (WBC) Count 9.6 10x3/uL (3.5-10.5)
[2023-11-20] MEDS ORDERED: Cefepime 2 GM VIAL ONE (08:23)
[2023-11-20] MEDS ORDERED: Ipratropium/Albuterol 3 ML NEB ONE (08:23)
[2023-11-20 08:55] LABS: ALT (SGPT) Less than 7 U/L (8-55); AST (SGOT) 20 U/L (5-34); Albumin 3.7 g/dL (3.5-5.0); Alkaline Phosphatase 68 U/L (40-110); Anion Gap 14 mmol/L (10-20); BUN (Urea Nitrogen) 31 mg/dL (8.4-25.7); Bilirubin, Total 0.8 mg/dL (0.2-1.2); Calc. Creatinine Clearance 0 mL/min (70-130); Calcium 8.2 mg/dL (7.8-10.44); Carbon Dioxide 32 mmol/L (22-29); Chloride 92 mmol/L (98-107); Estimated GFR 67; Globulin 3.1 g/dL (2.4-3.5); Glucose 218 mg/dL (70-105); Protein, Total 6.8 g/dL (6.0-8.3); Sodium 131 mmol/L (136-145)
[2023-11-20 09:00] LABS: Troponin I 0.136 ng/mL (< 0.028)
[2023-11-20 09:06] LABS: INR-International Normal Ratio 1.1; PTT 25.2 sec (22.0-33.0); Prothrombin Time 12.1 sec (9.5-12.1)
[2023-11-20 09:10] LABS: Potassium 6.7 mmol/L (3.5-5.1)
[2023-11-20] MEDS ORDERED: Furosemide 100 MG (10 mL) VIAL ONE (09:17)
[2023-11-20] MEDS ORDERED: Enoxaparin 100 MG (1 mL) SYRINGE ONE (09:17)
[2023-11-20 09:32] LABS: Actual Bicarbonate (HCO3a) 36.2 mEq/L (22-28); Analyzer IN Cardio CS ER; Base Excess (BEa) 1.6 mEq/L (-2.0 to +3.0); CO2 Tension 121.9 mmHg (35.0-45.0); Calcium, Ionized (arterial) 1.17 mmol/L (1.12-1.30); Carboxyhemoglobin (COHb) 2.1 gm% (0.0-3.0); Hematocrit-ABG 46 % (42.0-52.0); Hemoglobin (Hb) 15.7 g/dL (14.0-18.0); O2 Tension (PaO2), arterial 163.9 mmHg (80.0-100.0); Potassium - ABG Lab 5.34 mmol/L (3.70-5.30); Puncture Site LRA
[2023-11-20 09:34] LABS: SARS-CoV-2 NAA Rapid Test Not Detected (NotDetected)
[2023-11-20 09:37] LABS: ALV-art Gradient 396.725 mmHg (0-20)
[2023-11-20 09:44] LABS: ALV-art Gradient 359.375 mmHg (0-20); Actual Bicarbonate (HCO3a) 31.8 mEq/L (22-28); Analyzer IN Cardio CS ER; Base Excess (BEa) -1.1 mEq/L (-2.0 to +3.0); CO2 Tension 99.7 mmHg (35.0-45.0); Calcium, Ionized (arterial) 1.16 mmol/L (1.12-1.30); Carboxyhemoglobin (COHb) 1.9 gm% (0.0-3.0); Hematocrit-ABG 46 % (42.0-52.0); Hemoglobin (Hb) 15.6 g/dL (14.0-18.0); Potassium - ABG Lab 5.49 mmol/L (3.70-5.30); Puncture Site RBA; pH, Arterial 7.121 (7.35-7.45)
[2023-11-20] MEDS ORDERED: Albuterol 2.5 MG (3 mL) NEB ONE (09:46)
[2023-11-20] MEDS ORDERED: Ipratropium/Albuterol 3 ML NEB NEB PRN (10:05)
[2023-11-20] MEDS ORDERED: Acetaminophen 650 MG Suppository PR PRN (10:05)
[2023-11-20 10:16] LABS: Anion Gap 14 mmol/L (10-20); BUN (Urea Nitrogen) 31 mg/dL (8.4-25.7); Calc. Creatinine Clearance 0 mL/min (70-130); Calcium 8.2 mg/dL (7.8-10.44); Carbon Dioxide 33 mmol/L (22-29); Chloride 91 mmol/L (98-107); Estimated GFR 67; Glucose 208 mg/dL (70-105); Sodium 132 mmol/L (136-145)
[2023-11-20 10:18] LABS: Critical Call Chemistry NUR.DG3@1018; Potassium 6.3 mmol/L (3.5-5.1)
[2023-11-20] MEDS ORDERED: Dextrose 5% in Water 1,000 ML IV PRN (10:22)
[2023-11-20] MEDS ORDERED: Glucagon 1 MG/ML KIT IM PRN (10:22)
[2023-11-20] MEDS ORDERED: Dextrose 50% Abboject 50 ML SYRINGE SLOW IVP PRN (10:22)
[2023-11-20] MEDS ORDERED: Sodium Polystyrene Sulfonate 15 GM (60 mL) BOT ONE (10:33)
[2023-11-20] MEDS ORDERED: Calcium Gluc 4.6 MEQ/10 ML (100 MG/ML) ONE (10:33)
[2023-11-20] MEDS ORDERED: Insulin Regular 300 UNITS/3 ML VIAL ONE (10:34)
[2023-11-20] MEDS ORDERED: Acetaminophen 650 MG/20.3 ML UDCUP PO PRN (10:53)
[2023-11-20 12:22] LABS: Troponin I 0.172 ng/mL (< 0.028)
[2023-11-20] MEDS: NOREPINEPHRINE 8 MG/250 ML-D5W 250 ML IVPB SCH (12:30)
[2023-11-20 12:42] LABS: Actual Bicarbonate (HCO3a) 35.3 mEq/L (22-28); Analyzer IN Cardio CS ICU; Base Excess (BEa) 3.2 mEq/L (-2.0 to +3.0); CO2 Tension 99.2 mmHg (35.0-45.0); Calcium, Ionized (arterial) 1.18 mmol/L (1.12-1.30); Carboxyhemoglobin (COHb) 2.1 gm% (0.0-3.0); Hematocrit-ABG 42 % (42.0-52.0); Hemoglobin (Hb) 14.4 g/dL (14.0-18.0); Potassium - ABG Lab 4.64 mmol/L (3.70-5.30); Puncture Site RBA; pH, Arterial 7.169 (7.35-7.45)
[2023-11-20] MEDS: Ipratropium/Albuterol 3 ML NEB NEB SCH (13:17)
[2023-11-20] MEDS: NOREPINEPHRINE 8 MG/250 ML-D5W 250 ML ONE (14:47)
[2023-11-20] MEDS: VANCOMYCIN 2 GRAM/400 ML BAG 2 GM in Premix 1 BAG IVPB SCH (14:58)
[2023-11-20] MEDS: Furosemide 40 MG (4 mL) VIAL SLOW IVP SCH (15:01)
[2023-11-20] MEDS: methylPREDNISolone Sod Succ 40 MG VIAL IVP SCH (15:02)
[2023-11-20] MEDS: hydrALAZINE 25 MG TAB PO SCH (15:12)
[2023-11-20 15:18] LABS: Actual Bicarbonate (HCO3a) 33.2 mEq/L (22-28); Analyzer IN Cardio CS ICU; CO2 Tension 95.8 mmHg (35.0-45.0); Calcium, Ionized (arterial) 1.16 mmol/L (1.12-1.30); Carboxyhemoglobin (COHb) 1.6 gm% (0.0-3.0); Hematocrit-ABG 44 % (42.0-52.0); Hemoglobin (Hb) 14.9 g/dL (14.0-18.0); O2 Tension (PaO2), arterial 297.1 mmHg (80.0-100.0); Potassium - ABG Lab 4.66 mmol/L (3.70-5.30); Puncture Site RBA; pH, Arterial 7.157 (7.35-7.45)
[2023-11-20 15:23] LABS: Troponin I 0.197 ng/mL (< 0.028)
[2023-11-20] MEDS: Sodium Chloride 0.9% 1,000 ML IV SCH (16:43)
[2023-11-20 16:50] LABS: Bilirubin Neg (Negative); Blood, Urine Negative (Negative); Clarity Clear (Clear); Glucose, Urine (Dipstick) Normal (Negative); Ketone, Urine Negative (Negative); Leukocyte Negative (Negative); Nitrite Negative (Negative); Protein, Urine (Dipstick) 100 mg/dl (Neg-Trace); Specific Gravity, Urine 1.025 (1.005-1.030); Urobilinogen Normal mg/dL (Less than 2)
[2023-11-20 17:20] LABS: Bacteria/HPF 2+ HPF (None Seen); CAUTI Indications for Culture Pelvic or flank pain; RBC/HPF 0-3 HPF (0-3)
[2023-11-20 17:21] LABS: Transitional Epithelial 0-3 HPF (None Seen)
[2023-11-20] MEDS: Acetaminophen 325 MG TAB PO PRN (17:21)
[2023-11-20 17:24] LABS: Mucous/LPF 2+ LPF (<2+)
[2023-11-20 17:25] LABS: Urine Culture Reflex No No
[2023-11-20] MEDS: Carvedilol 25 MG TAB PO SCH (17:30)
[2023-11-20 18:53] LABS: RapidComm Comment collection time 0938
[2023-11-20] MEDS: Atorvastatin Calcium 40 MG TAB PO SCH (20:35)
[2023-11-20] MEDS: Cefepime 2 GM in Sodium Chloride 0.9% 100 ML IVPB SCH (20:49)
[2023-11-20] MEDS: Vancomycin 1 GM in Sodium Chloride 0.9% 250 ML 250 ML IVPB SCH (20:50)
[2023-11-20] MEDS ORDERED: Vancomycin 1.5 GM in Sodium Chloride 0.9% 250 ML 300 ML IVPB SCH (21:00)
[2023-11-20 21:20] LABS: Amphetamine Not Detected (NotDetected); Barbiturates Screen Not Detected (NotDetected); Benzodiazepine Screen Not Detected (NotDetected); Cocaine Metabolite Screen Not Detected (NotDetected); Methadone Not Detected (NotDetected); Methamphetamine Not Detected (NotDetected); Opiate Screen Not Detected (NotDetected); Oxycodone Screen Not Detected (NotDetected); Phencyclidine (PCP) Not Detected (NotDetected); THC/Cannabinoid Screen Not Detected (NotDetected); Tricyclic Screen Not Detected (NotDetected)
[2023-11-21 00:39] LABS: ALV-art Gradient 198.275 mmHg (0-20); Actual Bicarbonate (HCO3a) 31.2 mEq/L (22-28); Analyzer IN Cardio CS ICU; Base Excess (BEa) 1.8 mEq/L (-2.0 to +3.0); CO2 Tension 72.1 mmHg (35.0-45.0); Calcium, Ionized (arterial) 1.13 mmol/L (1.12-1.30); Carboxyhemoglobin (COHb) 1.6 gm% (0.0-3.0); Critical Notified By: CP.PH; Hematocrit-ABG 42 % (42.0-52.0); Hemoglobin (Hb) 14.3 g/dL (14.0-18.0); O2 Tension (PaO2), arterial 68.1 mmHg (80.0-100.0); Potassium - ABG Lab 4.64 mmol/L (3.70-5.30); Puncture Site RRA; RapidComm Collect By CP.PH; pH, Arterial 7.254 (7.35-7.45)
[2023-11-21 05:05] LABS: Anion Gap 17 mmol/L (10-20); BUN (Urea Nitrogen) 35 mg/dL (8.4-25.7); Calc. Creatinine Clearance 101 mL/min (70-130); Carbon Dioxide 29 mmol/L (22-29); Chloride 94 mmol/L (98-107); Estimated GFR 68; Glucose 171 mg/dL (70-105); Potassium 4.8 mmol/L (3.5-5.1); Sodium 135 mmol/L (136-145)
[2023-11-21 05:07] LABS: Platelet Count 274 10x3/uL (150-450)
[2023-11-21 05:08] LABS: #Monocytes 0.6 10x3/uL (0.0-1.1); #Neutrophils 5.3 10x3/uL (1.5-8.4); %Basophils 0.2 % (0.0-2.0); %Lymphocytes 8.7 % (18.0-47.0); %Monocytes 8.5 % (0.0-10.0); %Neutrophils 82.1 % (40.0-75.0); Hematocrit 47.9 % (38.8-50.0); Hemoglobin 14.2 g/dL (13.5-17.5); Mean Corpuscular HGB CONC 29.6 g/dL (32.0-36.0); Mean Corpuscular Hemoglobin 25.8 pg (27.0-33.0); Mean Corpuscular Volume 86.9 fl (81.2-95.1); Mean Platelet Volume 9.7 fl (7.4-10.4); RBC Distribution Width 15.3 % (11.5-14.5); Red Blood Cell (RBC) Count 5.51 10x6/uL (4.32-5.72); White Blood Cell (WBC) Count 6.5 10x3/uL (3.5-10.5)
[2023-11-21] MEDS: Valsartan 80 MG TAB PO SCH (07:41)
[2023-11-21] MEDS: Spironolactone 25 MG TAB PO SCH (07:43)
[2023-11-21] MEDS: Empagliflozin 25 MG TAB PO SCH (07:43)
[2023-11-21] MEDS: Pantoprazole 40 MG VIAL IVP SCH (07:44)
[2023-11-21] MEDS: Aspirin 81 mg Enteric Coated Tablet PO SCH (07:44)
[2023-11-21] MEDS: Enoxaparin 40 MG (0.4 mL) SYRINGE SC SCH (07:52)
[2023-11-21] MEDS: methylPREDNISolone Sod Succ 40 MG VIAL IVP SCH (07:56)
[2023-11-21 08:38] LABS: Actual Bicarbonate (HCO3a) 31.4 mEq/L (22-28); Base Excess (BEa) 6.6 mEq/L (-2.0 to +3.0); CO2 Tension 45.4 mmHg (35.0-45.0); Hematocrit-ABG 41 % (42.0-52.0); Hemoglobin (Hb) 14.1 g/dL (14.0-18.0); pH, Arterial 7.458 (7.35-7.45)
[2023-11-21 08:39] LABS: Analyzer IN Cardio CS ICU; Calcium, Ionized (arterial) 1.08 mmol/L (1.12-1.30); Carboxyhemoglobin (COHb) 1.2 gm% (0.0-3.0); Puncture Site RRA
[2023-11-21] MEDS ORDERED: methylPREDNISolone Sod Succ 40 MG VIAL IVP SCH (09:00)
[2023-11-21] MEDS: HumaLOG 300 UNITS/3 ML VIAL SC PRN (11:59)
[2023-11-21] MEDS ORDERED: Lidocaine 2% 6 ML (Jelly) SYR TOP PRN (19:06)
[2023-11-21 20:17] LABS: Vancomycin, Trough 19.5 ug/mL
[2023-11-21] MEDS: cefTRIAXone\\ROCEPHIN 2 GM in Sodium Chloride 0.9% 100 ML IVPB SCH (21:18)
[2023-11-21] MEDS: Azithromycin 250 MG TAB PO SCH (21:19)
[2023-11-22 03:57] LABS: #Monocytes 1.1 10x3/uL (0.0-1.1); #Neutrophils 4.9 10x3/uL (1.5-8.4); %Basophils 0.1 % (0.0-2.0); %Lymphocytes 13.3 % (18.0-47.0); %Monocytes 15.9 % (0.0-10.0); %Neutrophils 70.4 % (40.0-75.0); Hematocrit 40.6 % (38.8-50.0); Hemoglobin 12.4 g/dL (13.5-17.5); Mean Corpuscular HGB CONC 30.5 g/dL (32.0-36.0); Mean Corpuscular Hemoglobin 25.9 pg (27.0-33.0); Mean Corpuscular Volume 84.8 fl (81.2-95.1); Mean Platelet Volume 9.8 fl (7.4-10.4); Platelet Count 242 10x3/uL (150-450); RBC Distribution Width 15.2 % (11.5-14.5); Red Blood Cell (RBC) Count 4.79 10x6/uL (4.32-5.72)
[2023-11-22 04:10] LABS: Anion Gap 11 mmol/L (10-20); BUN (Urea Nitrogen) 40 mg/dL (8.4-25.7); Calc. Creatinine Clearance 127 mL/min (70-130); Calcium 7.8 mg/dL (7.8-10.44); Carbon Dioxide 33 mmol/L (22-29); Chloride 95 mmol/L (98-107); Estimated GFR 90; Glucose 180 mg/dL (70-105); Potassium 4.2 mmol/L (3.5-5.1); Sodium 135 mmol/L (136-145)
[2023-11-22] MEDS: Ketoconazole 2% Cream 15 gm Tube TOP SCH (08:52)
[2023-11-22] MEDS: Furosemide 40 MG (4 mL) VIAL SLOW IVP SCH (18:28)
[2023-11-22] MEDS: hydrALAZINE 25 MG TAB PO SCH (21:50)
[2023-11-23 03:53] LABS: #Monocytes 1.1 10x3/uL (0.0-1.1); #Neutrophils 4.5 10x3/uL (1.5-8.4); %Basophils 0.2 % (0.0-2.0); %Lymphocytes 10.4 % (18.0-47.0); %Monocytes 17.9 % (0.0-10.0); %Neutrophils 71.3 % (40.0-75.0); Hematocrit 43.9 % (38.8-50.0); Mean Corpuscular HGB CONC 29.6 g/dL (32.0-36.0); Mean Corpuscular Hemoglobin 25.2 pg (27.0-33.0); Mean Corpuscular Volume 85.1 fl (81.2-95.1); Mean Platelet Volume 9.4 fl (7.4-10.4); Platelet Count 216 10x3/uL (150-450); RBC Distribution Width 14.9 % (11.5-14.5); Red Blood Cell (RBC) Count 5.16 10x6/uL (4.32-5.72); White Blood Cell (WBC) Count 6.2 10x3/uL (3.5-10.5)
[2023-11-23 04:23] LABS: Anion Gap 12 mmol/L (10-20); BUN (Urea Nitrogen) 31 mg/dL (8.4-25.7); Calc. Creatinine Clearance 142 mL/min (70-130); Calcium 8.3 mg/dL (7.8-10.44); Carbon Dioxide 36 mmol/L (22-29); Chloride 94 mmol/L (98-107); Estimated GFR 100; Glucose 163 mg/dL (70-105); Potassium 4.1 mmol/L (3.5-5.1); Sodium 138 mmol/L (136-145)
[2023-11-23] MEDS: Furosemide 40 MG (4 mL) VIAL SLOW IVP SCH (06:01)
[2023-11-23] MEDS: hydrALAZINE 25 MG TAB PO SCH (09:55)
[2023-11-23] MEDS: Fluticasone Propionate Nasal Spray 16 gm Bottle NASAL SCH ×2 (20:10→20:28)
[2023-11-23] MEDS: Benzocaine/Menthol 1 LOZ LOZ PO PRN (20:11)
[2023-11-24 03:44] LABS: #Neutrophils 5.1 10x3/uL (1.5-8.4); %Basophils 0.1 % (0.0-2.0); %Eosinophils 0.1 % (0.0-6.0); %Lymphocytes 10.9 % (18.0-47.0); %Monocytes 14.8 % (0.0-10.0); %Neutrophils 73.8 % (40.0-75.0); Hematocrit 40.7 % (38.8-50.0); Hemoglobin 12.1 g/dL (13.5-17.5); Mean Corpuscular HGB CONC 29.7 g/dL (32.0-36.0); Mean Corpuscular Hemoglobin 25.2 pg (27.0-33.0); Mean Corpuscular Volume 84.8 fl (81.2-95.1); Mean Platelet Volume 9.3 fl (7.4-10.4); Platelet Count 189 10x3/uL (150-450); RBC Distribution Width 14.8 % (11.5-14.5); White Blood Cell (WBC) Count 6.9 10x3/uL (3.5-10.5)
[2023-11-24 04:22] LABS: BUN (Urea Nitrogen) 27 mg/dL (8.4-25.7); Calc. Creatinine Clearance 144 mL/min (70-130); Calcium 8.1 mg/dL (7.8-10.44); Estimated GFR 100; Glucose 207 mg/dL (70-105)
[2023-11-24 04:29] LABS: Anion Gap 14 mmol/L (10-20); Carbon Dioxide 35 mmol/L (22-29); Chloride 93 mmol/L (98-107); Sodium 138 mmol/L (136-145)
[2023-11-24 04:49] VITALS: BMI 34.0
[2023-11-24] MEDS: predniSONE 20 MG TAB PO SCH (08:00)
[2023-11-24] MEDS: Amlodipine 10 MG TAB PO SCH (09:31)
[2023-11-25 03:56] LABS: #Monocytes 0.7 10x3/uL (0.0-1.1); %Basophils 0.2 % (0.0-2.0); %Eosinophils 0.5 % (0.0-6.0); %Monocytes 12.6 % (0.0-10.0); %Neutrophils 69.2 % (40.0-75.0); Hematocrit 40.5 % (38.8-50.0); Hemoglobin 12.4 g/dL (13.5-17.5); Mean Corpuscular HGB CONC 30.6 g/dL (32.0-36.0); Mean Corpuscular Volume 84.9 fl (81.2-95.1); Platelet Count 177 10x3/uL (150-450); RBC Distribution Width 14.8 % (11.5-14.5); Red Blood Cell (RBC) Count 4.77 10x6/uL (4.32-5.72); White Blood Cell (WBC) Count 5.7 10x3/uL (3.5-10.5)
[2023-11-25 04:15] LABS: Anion Gap 12 mmol/L (10-20); BUN (Urea Nitrogen) 21 mg/dL (8.4-25.7); Calc. Creatinine Clearance 167 mL/min (70-130); Carbon Dioxide 35 mmol/L (22-29); Chloride 94 mmol/L (98-107); Estimated GFR 105; Glucose 228 mg/dL (70-105); Potassium 4.1 mmol/L (3.5-5.1); Sodium 137 mmol/L (136-145)
[2023-11-25] MEDS: Amlodipine 10 MG TAB PO SCH (08:50)
[2023-11-25 08:52] VITALS: BP 179/89
[2023-11-25 09:12] VITALS: TEMP 98.4
== END 2023-11-25 13:00 | disposition home or self-care (01) | DRG 291 ==
LOC: SUATTDRO 07:44 → CSHERS 07:44 → CSHICU 11:08 → CSHTELE 11-22 07:46
PROVIDERS: ADMIT Family Medicine; ATTEND Hospitalist
PROC: 3E033XZ Introduction of Vasopressor into Peripheral Vein, Percutaneous Approach (ICD-10-PCS; principal; 2023-11-20)
PROC: 4A133R1 Monitoring of Arterial Saturation, Peripheral, Percutaneous Approach (ICD-10-PCS; 2023-11-20)
PROC: 5A09457 Assistance with Respiratory Ventilation, 24-96 Consecutive Hours, Continuous Positive Airway Pressure (ICD-10-PCS; 2023-11-20)
PROC: 5A0935A Assistance with Respiratory Ventilation, Less than 24 Consecutive Hours, High Flow/Velocity Cannula (ICD-10-PCS; 2023-11-20)
DX: I50.23 Acute on chronic systolic (congestive) heart failure (principal); J96.02 Acute respiratory failure with hypercapnia; J96.21 Acute and chronic respiratory failure with hypoxia; J44.1 Chronic obstructive pulmonary disease with (acute) exacerbation; L03.116 Cellulitis of left lower limb; Z11.52 Encounter for screening for COVID-19; Z79.82 Long term (current) use of aspirin; Z79.899 Other long term (current) drug therapy; I11.0 Hypertensive heart disease with heart failure; Z79.84 Long term (current) use of oral hypoglycemic drugs; E78.5 Hyperlipidemia, unspecified; Z98.890 Other specified postprocedural states; Z82.49 Family history of ischemic heart disease and other diseases of the circulatory system; F17.210 Nicotine dependence, cigarettes, uncomplicated; Z89.511 Acquired absence of right leg below knee; E11.9 Type 2 diabetes mellitus without complications; Z79.4 Long term (current) use of insulin; G47.33 Obstructive sleep apnea (adult) (pediatric); B35.3 Tinea pedis
CPT/HCPCS: 36415; 36416; 36600; 70450; 71045; 80048; 80053; 80202; 80306; 81001; 82140; 82805; 83605; 83880; 84145; 84484; 85025; 85610; 85730; 87040; 93005; 93010; 94640; 94660; 94760; 94762; 96365; 96366; 96367; 96372; 96375; 97139; C9113; J0612; J0692; J0696; J1650; J1815; J1940; J2920; J3370; J3490; J7050; J7512; J7611; J7620